=== PATIENT | female | born 1945 | race Caucasian/White ===

== ENCOUNTER 2019-06-04 09:39 | Inpatient (IN) | payer MEDICARE ==
--- NOTE | 2019-06-04 10:11 | EDM.PDOC ---
ED HPI GENERAL MEDICAL PROBLEM - General Chief Complaint: Back Pain or Injury Stated Complaint: FELL ON Thursday06/01/19 Time Seen by Provider: 06/04/19 09:50 Source of Information: Reports: Patient, EMS, Family History Limitations: Reports: No Limitations - History of Present Illness INITIAL COMMENTS - FREE TEXT/NARRATIVE: 74-year-old female fell 4 days ago landing on her backside, since that time she has had significant pain in her lower back and pelvis area especially radiating into the left hip. She went into the clinic yesterday and had some x-rays which were called negative, but this morning she had too much discomfort to get out of bed so the family called the ambulance. She has no incontinence, no significant radiation of pain down the leg and no bruising. She is on warfarin. She received IV Dilaudid for pain control in route per EMS and is feeling much better. Onset: Sudden Duration: Day(s): (4 days ago) Location: Reports: Back Quality: Reports: Sharp, Stabbing Worsens with: Reports: Movement Context: Reports: Trauma (Fell 4 days ago) Lower Back Pain Score (Numeric/FACES): 2 - Related Data Allergies Allergy/AdvReac Type Severity Reaction Status Date / Time erythromycin base Allergy Swollen Verified 06/04/19 09:44 [Erythromycin Base] Eyes Penicillins Allergy Swollen Verified 06/04/19 09:44 Eyes Home Meds: Home Meds Colesevelam [Welchol] 625 tab PO TID 06/04/19 [History] Metoprolol Tartrate 12.5 mg PO BID 06/04/19 [History] Warfarin [Coumadin] 5 mg PO DAILY 06/04/19 [History] buPROPion HCL [Bupropion HCl Sr] 150 mg PO BID 06/04/19 [History] Past Medical History HEENT History: Reports: Cataract, Other (See Below) Other HEENT History: dry eyes Cardiovascular History: Reports: High Cholesterol, Hypertension Other Genitourinary History: ? 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: Musculoskeletal History: Reports: Osteoarthritis Psychiatric History: Reports: Depression Endocrine/Metabolic History: Reports: Diabetes, Type II Other Endocrine/Metabolic History: diet control - Infectious Disease History Infectious Disease History: Reports: Chicken Pox, Measles, Mumps - Past Surgical History HEENT Surgical History: Reports: Adenoidectomy, Cataract Surgery, Tonsillectomy Social & Family History - Tobacco Use Smoking Status *Q: Never Smoker - Caffeine Use Caffeine Use: Reports: Coffee - Recreational Drug Use Recreational Drug Use: No ED ROS GENERAL - Review of Systems Review Of Systems: See Below Constitutional: Denies: Fever, Chills Respiratory: Denies: Shortness of Breath Cardiovascular: Denies: Chest Pain GI/Abdominal: Denies: Nausea, Vomiting Neurological: Reports: Other (Some radicular type pain extending from the lower back through the left buttock into the upper left thigh). Denies: Headache, Paresthesia Psychiatric: Reports: No Symptoms ED EXAM,LOWER BACK PAIN/INJURY - Physical Exam Exam: See Below Exam Limited By: No Limitations General Appearance: Alert, No Apparent Distress, Other (Patient now is fairly comfortable after the IV Dilaudid) Head: Atraumatic Neck: Supple Respiratory/Chest: No Respiratory Distress Cardiovascular: Regular Rate, Rhythm, No Murmur GI/Abdominal: Soft, Non-Tender Back Exam: Other (She has increased pain when actively rolling onto her right side, mostly located in the upper sacrum and left buttock area. I cannot reproduce the pain with palpation. There is no bruising or asymmetry seen.) Extremities: No Pedal Edema Neurological: Alert, No Motor/Sensory Deficits, Oriented x 3 Course - Vital Signs Last Recorded V/S: Last Vital Signs Temp 97.2 F 06/04/19 09:48 Pulse 74 06/04/19 13:55 Resp 18 06/04/19 13:55 BP 117/51 L 06/04/19 13:55 Pulse Ox 99 06/04/19 13:55 - Orders/Labs/Meds Orders: Medication Orders Acetaminophen (Tylenol) 650 mg PO Q4H PRN PRN Reason: Pain (Mild 1-3)/fever Bupropion HCl (Wellbutrin Sr) 150 mg PO BID [facility] Cyclobenzaprine HCl (Flexeril) 10 mg PO Q6H PRN PRN Reason: Pain Sodium Chloride (Normal Saline) 1,000 mls @ 75 mls/hr IV ASDIRECTED [facility] Metoprolol Tartrate (Lopressor) 12.5 mg PO BID [facility] Non-Formulary Medication (Colesevelam [Welchol]) 625 tab PO TID [facility] Ondansetron HCl (Zofran) 4 mg IV Q4H PRN PRN Reason: Nausea/Vomiting Polyethylene Glycol (Miralax) 17 gm PO DAILY PRN PRN Reason: Constipation Senna/Docusate Sodium (Senna Plus) 1 tab PO BID [facility] Sodium Chloride (Saline Flush) 10 ml FLUSH ASDIRECTED PRN PRN Reason: Keep Vein Open Warfarin Sodium (Coumadin) 5 mg PO DAILY [facility] Labs: Laboratory Tests 06/04/19 06/04/19 06/04/19 Range/Units 11:53 11:55 11:55 WBC 8.4 (4.5-11.0) K/uL RBC 4.33 (3.30-5.50) M/uL Hgb 13.0 (12.0-15.0) g/dL Hct 40.0 (36.0-48.0) % MCV 92 (80-98) fL MCH 30 (27-31) pg MCHC 33 (32-36) % Plt Count 194 (150-400) K/uL Neut % (Auto) 78 H (36-66) % Lymph % (Auto) 12 L (24-44) % [place] % (Auto) 9 H (2-6) % Eos % (Auto) 1 L (2-4) % Baso % (Auto) 0 (0-1) % PT 37.6 H (9.5-12.0) sec INR 3.75 H (0.80-1.20) Sodium 141 (140-148) mmol/L Potassium 4.0 (3.6-5.2) mmol/L Chloride 105 (100-108) mmol/L Carbon Dioxide 25 (21-32) mmol/L Anion Gap 11.0 (5.0-14.0) mmol/L BUN 14 (7-18) mg/dL Creatinine 0.7 (0.6-1.0) mg/dL Est Cr Clr Drug Dosing 57.91 mL/min Estimated GFR (MDRD) > 60 (>60) Glucose 149 H (74-106) mg/dL Calcium 8.3 L (8.5-10.1) mg/dL Meds: Medications Generic Name Dose Route Start Last Admin Trade Name Freq PRN Reason Stop Dose Admin Acetaminophen 650 mg 06/04/19 13:38 Tylenol PO Q4H PRN Pain (Mild 1-3)/fever Bupropion HCl 150 mg 06/04/19 21:00 Wellbutrin Sr PO BID [facility] Cyclobenzaprine HCl 10 mg 06/04/19 14:10 Flexeril PO Q6H PRN Pain Sodium Chloride 1,000 mls @ 75 mls/hr 06/04/19 13:38 Normal Saline IV ASDIRECTED [facility] Metoprolol Tartrate 12.5 mg 06/04/19 21:00 Lopressor PO BID [facility] Non-Formulary Medication 625 tab 06/04/19 14:00 Colesevelam [Welchol] PO TID [facility] Ondansetron HCl 4 mg 06/04/19 13:38 Zofran IV Q4H PRN Nausea/Vomiting Polyethylene Glycol 17 gm 06/04/19 13:38 Miralax PO DAILY PRN Constipation Senna/Docusate Sodium 1 tab 06/04/19 14:00 Senna Plus PO BID [facility] Sodium Chloride 10 ml 06/04/19 13:38 Saline Flush FLUSH ASDIRECTED PRN Keep Vein Open Warfarin Sodium 5 mg 06/05/19 09:00 Coumadin PO DAILY [facility] Discontinued Medications Generic Name Dose Route Start Last Admin Trade Name Freq PRN Reason Stop Dose Admin Enoxaparin Sodium 40 mg 06/04/19 13:38 Lovenox SUBCUT DAILY [facility] Oxycodone HCl 5 mg 06/04/19 13:38 Oxycodone PO Q4H PRN Pain (moderate 4-6) - Re-Assessments/Exams Free Text/Narrative Re-Assessment/Exam: 06/04/19 10:10 The family called and said do not send her home as there is nobody that can help her. A CT of the lumbar spine and pelvis was ordered to rule out a compression fracture or subtle sacral fracture that was missed on regular x- rays. 06/04/19 11:44 IMPRESSION: 1. There are bilateral comminuted sacral ala insufficiency fractures, with medial extension into the sacral body at the inferior S1 segment resulting in mild cortical step-off anteriorly. 2. There is a mild L4 wedge compression deformity, age indeterminate. No retropulsion or posterior element involvement. 3. Diffuse lumbar spondylosis with upper lumbar dextroconvex scoliosis and asymmetric degenerative changes along the concave aspect of the scoliotic curvature. 4. At L4-5, at least moderate spinal canal stenosis and subarticular recess stenosis from grade 1 degenerative anterolisthesis and other spondylosis. Moderate up down neural foraminal stenosis bilaterally 5. At L5-S1, moderately advanced right up down neural foraminal stenosis with impingement of the exiting right L5 nerve root. 06/04/19 11:47 Discussed the above findings with Dr. Arnold of the hospitalist service, CBC and BMP were obtained and the patient will be admitted for pain control and initiation of rehabilitation. Departure - Departure Time of Disposition: 13:44 Disposition: Admitted As Inpatient 67 Clinical Impression: Vertigo Sacral insufficiency fracture Qualifiers: Encounter type: initial encounter Qualified Code(s): M84.48XA - Pathological fracture, other site, initial encounter for fracture Low back pain Qualifiers: Chronicity: acute Back pain laterality: left Sciatica presence: without sciatica Qualified Code(s): M54.5 - Low back pain - Discharge Information Sepsis Event Note - Evaluation Sepsis Screening Result: No Definite Risk - Focused Exam Vital Signs: Vital Signs Temp Pulse Resp BP Pulse Ox 06/04/19 09:48 97.2 F 80 18 120/74 98 06/04/19 09:45 97.2 F 80 18 120/74 98 Date Exam was Performed: 06/04/19 Time Exam was Performed: 14:21
--- NOTE | 2019-06-04 11:27 | CRLCT ---
Indication: Trauma. Patient fell. Technique: A CT volumetric acquisition was performed of the pelvis without IV contrast. Comparison: None Findings: Atherosclerotic calcifications are evident within the iliac arteries. There is no evidence intraperitoneal or extraperitoneal hemorrhage within the pelvis. The visualized small intestine and colon appear normal. Uterus and ovaries appear normal. The urinary bladder is intact. Degenerative changes are present within the symphysis pubis. No fractures are identified within the inferior or superior pubic rami. The acetabulum appears intact. Femoral heads are anatomically aligned. There is no evidence of a fracture within either femoral head or neck. The greater and lesser trochanter appear intact. There is no evidence of diastasis of the sacroiliac joints. No fractures are noted within the iliac wings. Impression: No fracture identified within either hip or within the bony pelvis. Please note that all CT scans at this facility use dose modulation, iterative reconstruction, and/or weight-based dosing when appropriate to reduce radiation dose to as low as reasonably achievable. Dictated by Alexi Abebe MD @ Jun 04 2019 11:21AM Signed by Dr. Alexi Abebe @ Jun 04 2019 11:25AM
--- NOTE | 2019-06-04 11:32 | CRLCT ---
INDICATION: Fall with back pain. TECHNIQUE: CT of the lumbar spine without contrast. Coronal and sagittal reformats are included. COMPARISON: None. FINDINGS: Five lumbar type vertebral bodies, with the last fully formed disc space referred to as L5-S1. Dextroconvex scoliosis with apex at L1-2. There are bilateral comminuted fractures of the sacral ala, with central extension into the sacral body at the inferior S1 segment. This results in mild anterior cortical step-off at S1 with respect to S2. Favor insufficiency fractures as underlying etiology. L4 wedge compression deformity with 20 percent height loss anteriorly. No retropulsion. Atheromatous abdominal aorta without aneurysm. Findings at individual levels as follows: T12-L1: Moderate disc height loss and T12 inferior endplate Schmorl`s node. Trace degenerative retrolisthesis. Mild disc bulging, eccentric to the left. Left facet joint arthrosis moderate left neural foraminal narrowing. No right neural foraminal narrowing or spinal canal narrowing. L1-2: Mild disc bulging and left facet arthrosis. Mild left neural foraminal narrowing. No right neural foraminal narrowing or spinal canal narrowing. L2-3: Moderate to advanced disc height loss posteriorly, with subchondral sclerosis and degenerative end-plate remodeling. Moderate circumferential disc bulging and bilateral facet arthrosis. Mild to moderate left neural foraminal narrowing. No significant right neural foraminal narrowing or spinal canal narrowing. L3-4: Interspace ballooning anteriorly with moderate disc height loss and subchondral sclerosis posteriorly. Moderate disc bulge with overlying end-plate osteophytes, eccentric to the left. Mild left neural foraminal narrowing. Bilateral facet arthrosis. No significant right neural foraminal narrowing or spinal canal narrowing. L4-5: Mild disc height loss and 4 millimeters of grade 1 degenerative anterolisthesis. Advanced bilateral facet arthrosis. At least moderate spinal canal stenosis and subarticular recess stenosis. Moderate bilateral up down neural foraminal stenosis. L5-S1: Moderate disc height loss, more prominent on the right where there is subchondral sclerosis and degenerative end-plate remodeling. Mild degenerative anterolisthesis. Bilateral advanced facet arthrosis. Moderately advanced right up down neural foraminal stenosis, with impingement of the exiting right L5 nerve root. Imaged SI joints: Bilateral arthrosis. IMPRESSION: 1. There are bilateral comminuted sacral ala insufficiency fractures, with medial extension into the sacral body at the inferior S1 segment resulting in mild cortical step-off anteriorly. 2. There is a mild L4 wedge compression deformity, age indeterminate. No retropulsion or posterior element involvement. 3. Diffuse lumbar spondylosis with upper lumbar dextroconvex scoliosis and asymmetric degenerative changes along the concave aspect of the scoliotic curvature. 4. At L4-5, at least moderate spinal canal stenosis and subarticular recess stenosis from grade 1 degenerative anterolisthesis and other spondylosis. Moderate up down neural foraminal stenosis bilaterally 5. At L5-S1, moderately advanced right up down neural foraminal stenosis with impingement of the exiting right L5 nerve root. Please note that all CT scans at this facility use dose modulation, iterative reconstruction, and/or weight-based dosing when appropriate to reduce radiation dose to as low as reasonably achievable. Dictated by Santana Yi MD @ Jun 04 2019 11:16AM Signed by Dr. Santana Yi @ Jun 04 2019 11:30AM
--- NOTE | 2019-06-04 12:25 | PCM.HP.2 ---
H&P History of Present Illness - General Date of Service: 06/04/19 Admit Problem/Dx: Admission Diagnosis/Problem Admission Diagnosis/Problem Fracture of pelvis Source of Information: Patient, Provider, RN Notes Reviewed History Limitations: Reports: No Limitations - History of Present Illness Initial Comments - Free Text/Narative: Ms. Car is a 74-year-old woman who was admitted through the emergency department with pain and weakness secondary to a sacral insufficiency fracture. She has been having some ongoing difficulty with vertigo, unfortunately she fell 3 days ago landing on her back and buttocks. Since then has had severe low back pain that is much worse with any type of movement or attempt at ambulation. She has been bedbound over the last 24 hours and was brought into the emergency department by EMS. X-rays obtained in the clinic 2 days ago showed no obvious fracture. CT scan of pelvis showed a sacral insufficiency fracture and possible L4 compression fracture to explain her current symptoms. She denies any neurologic deficits or symptoms and has had no difficulty with urination or bowel movements. Lower Back Pain Score (Numeric/FACES): 2 - Related Data Allergies/Adverse Reactions: Allergies Allergy/AdvReac Type Severity Reaction Status Date / Time erythromycin base Allergy Swollen Verified 06/04/19 09:44 [Erythromycin Base] Eyes Penicillins Allergy Swollen Verified 06/04/19 09:44 Eyes Home Medications: Home Meds Colesevelam [Welchol] 625 tab PO TID 06/04/19 [History] Metoprolol Tartrate 12.5 mg PO BID 06/04/19 [History] Warfarin [Coumadin] 5 mg PO DAILY 06/04/19 [History] buPROPion HCL [Bupropion HCl Sr] 150 mg PO BID 06/04/19 [History] Past Medical History HEENT History: Reports: Cataract, Other (See Below) Other HEENT History: dry eyes Cardiovascular History: Reports: High Cholesterol, Hypertension Other Genitourinary History: ? 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: Musculoskeletal History: Reports: Osteoarthritis Psychiatric History: Reports: Depression Endocrine/Metabolic History: Reports: Diabetes, Type II Other Endocrine/Metabolic History: diet control - Infectious Disease History Infectious Disease History: Reports: Chicken Pox, Measles, Mumps - Past Surgical History HEENT Surgical History: Reports: Adenoidectomy, Cataract Surgery, Tonsillectomy Social & Family History - Tobacco Use Smoking Status *Q: Never Smoker - Caffeine Use Caffeine Use: Reports: Coffee - Recreational Drug Use Recreational Drug Use: No H&P Review of Systems - Review of Systems: Review Of Systems: See Below General: Reports: Weakness. Denies: Fever, Chills HEENT: Reports: No Symptoms Pulmonary: Reports: No Symptoms Cardiovascular: Reports: No Symptoms Gastrointestinal: Reports: No Symptoms Genitourinary: Reports: No Symptoms Musculoskeletal: Reports: Other (Low back pain) Skin: Reports: No Symptoms Psychiatric: Reports: No Symptoms Neurological: Reports: No Symptoms Hematologic/Lymphatic: Reports: No Symptoms Immunologic: Reports: No Symptoms Exam - Exam Exam: See Below - Vital Signs Vital Signs: Last Vital Signs Temp 97.2 F 06/04/19 09:48 Pulse 80 06/04/19 09:48 Resp 18 06/04/19 09:48 BP 120/74 06/04/19 09:48 Pulse Ox 98 06/04/19 09:48 Weight: 123 lb - Exam Quality Assessment: DVT Prophylaxis General: Alert, Oriented, Cooperative, Moderate Distress HEENT: Conjunctiva Clear, Hearing Intact, Mucosa Moist & [place], Normal Nasal Septum, Posterior Pharynx Clear, Pupils Equal Neck: Supple, Trachea Midline, +2 Carotid Pulse wo Bruit Lungs: Clear to Auscultation, Normal Respiratory Effort Cardiovascular: Regular Rate, Normal S1, Normal S2, Irregular Rhythm. No: Systolic Murmur, Diastolic Murmur GI/Abdominal Exam: Soft, Non-Tender, No Organomegaly, No Distention Skin: Warm, Dry, Intact Neurological: Cranial Nerves Intact, Strength Equal Bilateral, Normal Speech, Normal Tone, Sensation Intact. No: Focal Deficit Neuro Extensive - Mental Status: Alert, Oriented x3, Normal Mood/Affect, Normal Cognition, Memory Intact - Patient Data Lab Results Last 24 hrs: Laboratory Results - last 24 hr 06/04/19 06/04/19 Range/Units 11:55 11:55 WBC 8.4 (4.5-11.0) K/uL RBC 4.33 (3.30-5.50) M/uL Hgb 13.0 (12.0-15.0) g/dL Hct 40.0 (36.0-48.0) % MCV 92 (80-98) fL MCH 30 (27-31) pg MCHC 33 (32-36) % Plt Count 194 (150-400) K/uL Neut % (Auto) 78 H (36-66) % Lymph % (Auto) 12 L (24-44) % [place] % (Auto) 9 H (2-6) % Eos % (Auto) 1 L (2-4) % Baso % (Auto) 0 (0-1) % Sodium 141 (140-148) mmol/L Potassium 4.0 (3.6-5.2) mmol/L Chloride 105 (100-108) mmol/L Carbon Dioxide 25 (21-32) mmol/L Anion Gap 11.0 (5.0-14.0) mmol/L BUN 14 (7-18) mg/dL Creatinine 0.7 (0.6-1.0) mg/dL Est Cr Clr Drug Dosing 57.91 mL/min Estimated GFR (MDRD) > 60 (>60) Glucose 149 H (74-106) mg/dL Calcium 8.3 L (8.5-10.1) mg/dL Result Diagrams: 06/04/19 11:55 06/04/19 11:55 Sepsis Event Note - Evaluation Sepsis Screening Result: No Definite Risk - Focused Exam Vital Signs: Vital Signs Temp Pulse Resp BP Pulse Ox 06/04/19 09:48 97.2 F 80 18 120/74 98 06/04/19 09:45 97.2 F 80 18 120/74 98 Date Exam was Performed: 06/04/19 Time Exam was Performed: 12:51 *Q Meaningful Use (ADM) - VTE Risk Assess *Q Each Risk Factor Represents 1 Point: None Total Score 1 Point Risk Factors: 0 Each Risk Factor Represents 2 Points: Age 60 - 74 Years Total Score 2 Point Risk Factors: 2 Each Risk Factor Represents 3 Points: None Total Score 3 Point Risk Factors: 0 Each Risk Factor Represents 5 Points: Hip, Pelvis or Leg Fracture, Less than 1 month Total Score 5 Point Risk Factors: 5 Venous Thromboembolism Risk Factor Score *Q: 7 Problem List Initiated/Reviewed/Updated: Yes Orders Last 24hrs: Active Orders 24 hr Category Date Time Status Patient Status Manage Transfer [TRANSFER] Routine ADT 06/04/19 12:18 Active Resuscitation Status Routine Resus Stat 06/04/19 12:20 Ordered Assessment/Plan Comment:: ASSESSMENT AND PLAN SACRAL INSUFFICIENCY FRACTURE-occurring as a result of the fall 3 days ago. Over the last 24 to 36 hours has been unable to get out of bed. Pain remains severe limiting all types of movement or ambulation. -Pain and nausea medication as needed -Physical therapy consult -IV fluids for hydration -We will need to plan for intermediate placement HYPERTENSION -Continue outpatient medical therapy VERTIGO-longstanding issue MAINTENANCE ISSUES -DVT prophylaxis; Lovenox 40 mg subcu daily -GI prophylaxis; not indicated -Li catheter; not indicated -Nutrition; 2 g sodium diet -Nicotine dependence; not required CODE STATUS-FULL CODE ADMISSION STATUS-patient will be admitted to inpatient status, expect at least a 2 night hospital stay for evaluation and management of problems as outlined above. At the time of this admission I do not reasonably expected evaluation and management of this problem will require more than a 96 hour hospital stay. DISPOSITION-anticipate discharge to home after the hospital stay. PRIMARY CARE PROVIDER- - Mortality Measure Prognosis:: Good
[2019-06-04] MEDS ORDERED: Sodium Chloride 0.9% 10 ML Syringe FLUSH PRN (13:38)
[2019-06-04] MEDS ORDERED: Ondansetron 4 MG/2 ML SDV IV PRN (13:38)
[2019-06-04] MEDS ORDERED: Enoxaparin 40 MG/0.4 ML Syringe SUBCUT SCH (13:38)
[2019-06-04] MEDS ORDERED: Polyethylene Glycol 3350 Powder 17 GM Packet PO PRN (13:38)
[2019-06-04] MEDS ORDERED: oxyCODONE 5 MG Tab PO PRN (13:38)
[2019-06-04] MEDS ORDERED: COLESEVELAM PO SCH (14:00)
[2019-06-04] MEDS: Sodium Chloride 0.9% 1,000 ML IV SCH (15:04)
[2019-06-04] MEDS: Cyclobenzaprine 10 MG Tab PO PRN (15:40)
[2019-06-04] MEDS: WELCHOL 625 MG PO SCH (17:31)
[2019-06-04] MEDS: Acetaminophen 325 MG Tab PO PRN (17:53)
[2019-06-04] MEDS: buPROPion 150 MG Tab.SR PO SCH (20:57)
[2019-06-04] MEDS: [UNRECOGNIZED DRUG - OTHER] PO SCH (20:58)
[2019-06-04] MEDS ORDERED: BUPROPION HCL 150 MG PO SCH (21:00)
[2019-06-04] MEDS: Metoprolol Tartrate 25 MG Tab PO SCH (21:30)
[2019-06-05] MEDS: Sodium Chloride 0.9% 1,000 ML IV SCH (04:04)
[2019-06-05] MEDS: Cyclobenzaprine 10 MG Tab PO PRN (07:47)
[2019-06-05] MEDS: Metoprolol Tartrate 25 MG Tab PO SCH ×2 (08:35→20:00)
[2019-06-05] MEDS: buPROPion 150 MG Tab.SR PO SCH ×2 (08:36→20:00)
[2019-06-05] MEDS: WELCHOL 625 MG PO SCH ×3 (08:36→18:05)
[2019-06-05] MEDS: [UNRECOGNIZED DRUG - OTHER] PO SCH ×2 (08:36→21:41)
[2019-06-05] MEDS ORDERED: Diphtheria,Pertussis(Acell),Tetanus Vaccine 0.5 ML SDV IM ONE (10:00)
[2019-06-05] MEDS ORDERED: oxyCODONE 5 MG Tab PO PRN (11:22)
--- NOTE | 2019-06-05 11:27 | PCM.PN ---
- General Info Date of Service: 06/05/19 Subjective Update: Ms. Car to experience significant lower back and pelvic pain, related to her underlying fractures. Activity has been fairly limited and she requires assistance of 2 for transfers as well as short ambulation. Functional Status: Reports: Tolerating Diet, Urinating - Review of Systems General: Reports: Weakness. Denies: Fever, Chills Pulmonary: Reports: No Symptoms Cardiovascular: Reports: No Symptoms Gastrointestinal: Reports: No Symptoms Musculoskeletal: Reports: Back Pain (And pelvic pain) - Patient Data Vitals - Most Recent: Last Vital Signs Temp 95.2 F L 06/05/19 10:15 Pulse 78 06/05/19 10:15 Resp 16 06/05/19 10:15 BP 121/61 06/05/19 10:15 Pulse Ox 96 06/05/19 10:15 Weight - Most Recent: 120 lb 3.2 oz I&O - Last 24 Hours: Intake & Output 06/04/19 06/05/19 06/05/19 22:59 06:59 14:59 Intake Total 216 1158 360 Output Total 700 Balance -484 1158 360 Lab Results Last 24 Hours: Laboratory Results - last 24 hr 06/04/19 06/04/19 06/04/19 Range/Units 11:53 11:55 11:55 WBC 8.4 (4.5-11.0) K/uL RBC 4.33 (3.30-5.50) M/uL Hgb 13.0 (12.0-15.0) g/dL Hct 40.0 (36.0-48.0) % MCV 92 (80-98) fL MCH 30 (27-31) pg MCHC 33 (32-36) % Plt Count 194 (150-400) K/uL Neut % (Auto) 78 H (36-66) % Lymph % (Auto) 12 L (24-44) % [place] % (Auto) 9 H (2-6) % Eos % (Auto) 1 L (2-4) % Baso % (Auto) 0 (0-1) % PT 37.6 H (9.5-12.0) sec INR 3.75 H (0.80-1.20) Sodium 141 (140-148) mmol/L Potassium 4.0 (3.6-5.2) mmol/L Chloride 105 (100-108) mmol/L Carbon Dioxide 25 (21-32) mmol/L Anion Gap 11.0 (5.0-14.0) mmol/L BUN 14 (7-18) mg/dL Creatinine 0.7 (0.6-1.0) mg/dL Est Cr Clr Drug Dosing 57.91 mL/min Estimated GFR (MDRD) > 60 (>60) Glucose 149 H (74-106) mg/dL Calcium 8.3 L (8.5-10.1) mg/dL 06/05/19 Range/Units 04:20 WBC (4.5-11.0) K/uL RBC (3.30-5.50) M/uL Hgb (12.0-15.0) g/dL Hct (36.0-48.0) % MCV (80-98) fL MCH (27-31) pg MCHC (32-36) % Plt Count (150-400) K/uL Neut % (Auto) (36-66) % Lymph % (Auto) (24-44) % George % (Auto) (2-6) % Eos % (Auto) (2-4) % Baso % (Auto) (0-1) % PT 43.7 H (9.5-12.0) sec INR 4.40 H* (0.80-1.20) Sodium (140-148) mmol/L Potassium (3.6-5.2) mmol/L Chloride (100-108) mmol/L Carbon Dioxide (21-32) mmol/L Anion Gap (5.0-14.0) mmol/L BUN (7-18) mg/dL Creatinine (0.6-1.0) mg/dL Est Cr Clr Drug Dosing mL/min Estimated GFR (MDRD) (>60) Glucose (74-106) mg/dL Calcium (8.5-10.1) mg/dL Med Orders - Current: Current Medications Acetaminophen (Tylenol) 650 mg PO Q4H PRN PRN Reason: Pain (Mild 1-3)/fever Last Admin: 06/04/19 17:53 Dose: 650 mg Bupropion HCl (Wellbutrin Sr) 150 mg PO BID [facility] Last Admin: 06/05/19 08:36 Dose: 150 mg Metoprolol Tartrate (Lopressor) 12.5 mg PO BID [facility] Last Admin: 06/05/19 08:35 Dose: 12.5 mg Ondansetron HCl (Zofran) 4 mg IV Q4H PRN PRN Reason: Nausea/Vomiting Oxycodone HCl (Oxycodone) 5 mg PO Q3H PRN PRN Reason: Pain Welchol 625mg Tab ( (Ptom)) 0 each PO TIDMEALS [facility] Last Admin: 06/05/19 08:36 Dose: Not Given Preservision Mvi Tab ((Ptom)) 1 each PO BID [facility] Last Admin: 06/05/19 08:36 Dose: Not Given Polyethylene Glycol (Miralax) 17 gm PO DAILY PRN PRN Reason: Constipation Senna/Docusate Sodium (Senna Plus) 1 tab PO BID [facility] Last Admin: 06/05/19 08:36 Dose: 1 tab Sodium Chloride (Saline Flush) 10 ml FLUSH ASDIRECTED PRN PRN Reason: Keep Vein Open Discontinued Medications Cyclobenzaprine HCl (Flexeril) 10 mg PO Q6H PRN PRN Reason: Pain Last Admin: 06/05/19 07:47 Dose: 10 mg Diphtheria/Tetanus/Acell Pertussis (Adacel) 0.5 ml IM .ONCE ONE Stop: 06/05/19 10:01 Enoxaparin Sodium (Lovenox) 40 mg SUBCUT DAILY [facility] Last Admin: 06/04/19 21:14 Dose: Not Given Sodium Chloride (Normal Saline) 1,000 mls @ 75 mls/hr IV ASDIRECTED [facility] Last Admin: 06/05/19 04:04 Dose: 75 mls/hr Oxycodone HCl (Oxycodone) 5 mg PO Q4H PRN PRN Reason: Pain (moderate 4-6) Warfarin Sodium (Coumadin) 5 mg PO DAILY@1300 [facility] - Exam General: Alert, Oriented, Cooperative, Moderate Distress Lungs: Clear to Auscultation, Normal Respiratory Effort Cardiovascular: Regular Rate, Regular Rhythm GI/Abdominal Exam: Soft, Non-Tender, No Organomegaly, No Distention Extremities: Non-Tender, No Pedal Edema Sepsis Event Note - Evaluation Sepsis Screening Result: No Definite Risk - Focused Exam Vital Signs: Vital Signs Temp Pulse Pulse Resp BP BP Pulse Ox 06/05/19 10:15 95.2 F L 78 16 121/61 96 06/05/19 08:35 82 111/48 L 06/05/19 07:26 97.6 F 82 16 111/48 L 95 06/05/19 02:52 96.4 F L 83 16 104/48 L 97 Date Exam was Performed: 06/05/19 Time Exam was Performed: 11:24 - Problem List Review Problem List Initiated/Reviewed/Updated: Yes - My Orders Last 24 Hours: My Active Orders 06/04/19 12:20 Resuscitation Status Routine 06/04/19 13:38 Patient Status [ADT] Routine Ambulate [RC] QID Intake and Output [RC] QSHIFT Notify Provider Vital Signs [RC] ASDIRECTED Oxygen Therapy [RC] PRN Peripheral IV Care [RC] . DIRECTED Up to Chair [RC] QID VTE/DVT Education [RC] Per Unit Routine Vital Signs [RC] Q4H Consult to Physical Therapy [PT Evaluation and Treatment] [CONS] Routine Acetaminophen [Tylenol] 650 mg PO Q4H PRN Ondansetron [Zofran] 4 mg IV Q4H PRN Sodium Chloride 0.9% [Saline Flush] 10 ml FLUSH ASDIRECTED PRN polyethylene glycoL 3350 [MiraLAX] 17 gm PO DAILY PRN Peripheral IV Insertion Adult [OM.PC] Routine 06/04/19 14:00 Docusate Sodium/Sennosides [Senna Plus] 1 tab PO BID 06/04/19 14:58 Vaccines to be Administered [RC] PER UNIT ROUTINE 06/04/19 17:00 Patient's Own Medication [Ptom] 0 each PO TIDMEALS 06/04/19 21:00 Metoprolol Tartrate [Lopressor] 12.5 mg PO BID Patient's Own Medication [Ptom] 1 each PO BID buPROPion [Wellbutrin SR] 150 mg PO BID 06/04/19 Lunch 2 Gram Sodium Diet [DIET] 06/05/19 11:22 oxyCODONE 5 mg PO Q3H PRN 06/05/19 11:23 Convert IV to Saline Lock [OM.PC] Routine 06/06/19 05:00 INR,PT,PROTHROMBIN TIME [COAG] Timed - Plan Plan:: ASSESSMENT AND PLAN SACRAL INSUFFICIENCY FRACTURE-occurring as a result of the fall. Remains very limited with activity because of pain and is not safe for discharged home -Pain and nausea medication as needed -Physical therapy consult -Saline lock IV -care home placement HYPERTENSION -Continue outpatient medical therapy VERTIGO-longstanding issue MAINTENANCE ISSUES -DVT prophylaxis; Lovenox 40 mg subcu daily -GI prophylaxis; not indicated -Li catheter; not indicated -Nutrition; 2 g sodium diet -Nicotine dependence; not required CODE STATUS-FULL CODE ADMISSION STATUS-patient will be admitted to inpatient status, expect at least a 2 night hospital stay for evaluation and management of problems as outlined above. At the time of this admission I do not reasonably expected evaluation and management of this problem will require more than a 96 hour hospital stay. DISPOSITION-anticipate discharge to home after the hospital stay. PRIMARY CARE PROVIDER-
[2019-06-05] MEDS ORDERED: Warfarin 5 MG Tab PO SCH (13:00)
[2019-06-05] MEDS: oxyCODONE 5 MG Tab PO PRN ×2 (15:36→19:50)
[2019-06-05] MEDS: Acetaminophen 325 MG Tab PO PRN ×2 (15:36→19:49)
[2019-06-05] MEDS ORDERED: Diltiazem 25 MG/5 ML SDV IVPUSH ONE (20:50)
[2019-06-05] MEDS ORDERED: Diltiazem 100 MG in Sodium Chloride 0.9% 100 ML IV SCH (21:00)
[2019-06-05] MEDS ORDERED: Digoxin 500 MCG/2 ML Amp IVPUSH ONE (21:31)
[2019-06-05] MEDS ORDERED: Potassium Chloride Riders 40 MEQ in Premix Bag 1 BAG IV ONE (21:44)
[2019-06-05] MEDS ORDERED: Potassium Chloride 20 MEQ Tab.ER PO ONE (21:44)
--- NOTE | 2019-06-05 21:50 | PCM.SN ---
- Free Text/Narrative Note: Ms. Car unfortunately developed atrial fibrillation with rapid ventricular response this evening. Initial heart rates have been in the range of 140-160. She has a known history of paroxysmal atrial fibrillation and is on oral anticoagulation with warfarin. She is tolerated the rapid rate well denies any symptoms of lightheadedness weakness or shortness of breath. After onset of the atrial fibrillation she did receive her evening dose of metoprolol. Rates now are in the range of 110-130. Laboratory studies have been obtained CBC was unremarkable, BMP shows a low potassium level at 3.0, magnesium is within normal range. On physical examination blood pressure is borderline low at 90 systolic. Heart rates as above respiratory rate and oxygenation are good and she is currently afebrile. On cardiac exam she has rapid irregular rhythm no murmurs S3 or S4 lungs are clear. She has been transferred to the intensive care unit, given borderline blood pressure will hold off on diltiazem at the present time. She will receive digoxin 0.25 mg IV now. Hypokalemia will be managed with IV and oral potassium. Follow-up digoxin level and potassium level in a.m. with INR. TeleHealth - TeleHealth Patient Service Facility: [facility] Informed Consent: Telemedicine Audio/Visual Informed Consent: The risks, benefits, and alternatives to the telehealth visit were explained to the patient and the patient consented to this modality of care. The telehealth visit was carried out via a secure, web-based conferencing system. This telemedicine service was a real-time, two-way interactive video and communication between the patient and the provider. All the parties involved were identified and approved by the patient prior to the visit. Any physical exam was assisted by the patient. Unless noted otherwise, the provider was located at their usual clinic location , and the patient was at their place of residence. Patient identity was confirmed by having the patient state their name and date of . All communications with the patient (verbal, audiovisual, and written) were documented in the patients medical record per documentation standards.
[2019-06-05] MEDS ORDERED: Potassium Chloride 20 MEQ in Premix Bag 1 BAG IV ONE (22:15)
[2019-06-06] MEDS ORDERED: Potassium Chloride 20 MEQ in Premix Bag 1 BAG IV ONE (00:30)
[2019-06-06] MEDS: oxyCODONE 5 MG Tab PO PRN ×4 (00:44→19:13)
[2019-06-06] MEDS: Acetaminophen 325 MG Tab PO PRN (00:45)
[2019-06-06] MEDS: Metoprolol Tartrate 25 MG Tab PO SCH ×2 (08:11→20:06)
[2019-06-06] MEDS: buPROPion 150 MG Tab.SR PO SCH ×2 (08:13→20:07)
[2019-06-06] MEDS: [UNRECOGNIZED DRUG - OTHER] PO SCH ×2 (08:15→20:07)
[2019-06-06] MEDS: WELCHOL 625 MG PO SCH ×3 (08:15→17:27)
[2019-06-06] MEDS ORDERED: Trolamine Salicylate/Aloe Vera 10% Crm 85 GM Tube TOP PRN (09:36)
--- NOTE | 2019-06-06 09:40 | PCM.PN ---
- General Info Date of Service: 06/06/19 Subjective Update: There were no acute events overnight after her transfer to the intensive care unit. She did convert to a normal sinus rhythm with the diltiazem infusion and this has been stopped. She has remained in a sinus rhythm since that time. She does not report palpitations or shortness of breath. She does report ongoing moderate pain in her lower back with radiation down the left lower leg to the thigh and knee. She was able to get from the bed to the commode and back but had moderate pain. She thinks the pain is a little better today. She is very nervous about trying to bear any weight with concerns that she may fall because of the pain. Functional Status: Reports: Pain Controlled - Review of Systems General: Denies: Fever Musculoskeletal: Reports: Back Pain, Leg Pain (left buttocks and thigh ) - Patient Data Vitals - Most Recent: Last Vital Signs Temp 36.0 C L 06/06/19 08:00 Pulse 77 06/06/19 08:11 Resp 12 06/06/19 08:00 BP 110/56 L 06/06/19 08:11 Pulse Ox 94 L 06/06/19 08:00 Weight - Most Recent: 54.522 kg I&O - Last 24 Hours: Intake & Output 06/05/19 06/06/19 06/06/19 22:59 06:59 14:59 Output Total 1000 Balance -1000 Lab Results Last 24 Hours: Laboratory Results - last 24 hr 06/05/19 06/05/19 06/06/19 Range/Units 21:23 21:23 05:30 WBC 9.8 (4.5-11.0) K/uL RBC 4.23 (3.30-5.50) M/uL Hgb 12.7 (12.0-15.0) g/dL Hct 38.9 (36.0-48.0) % MCV 92 (80-98) fL MCH 30 (27-31) pg MCHC 33 (32-36) % Plt Count 227 (150-400) K/uL Neut % (Auto) 65 (36-66) % Lymph % (Auto) 22 L (24-44) % [place] % (Auto) 11 H (2-6) % Eos % (Auto) 2 (2-4) % Baso % (Auto) 0 (0-1) % PT 26.0 H (9.5-12.0) sec INR 2.54 H (0.80-1.20) Sodium 143 (140-148) mmol/L Potassium 3.0 L (3.6-5.2) mmol/L Chloride 107 (100-108) mmol/L Carbon Dioxide 24 (21-32) mmol/L Anion Gap 15.0 H (5.0-14.0) mmol/L BUN 18 (7-18) mg/dL Creatinine 0.7 (0.6-1.0) mg/dL Est Cr Clr Drug Dosing 56.61 mL/min Estimated GFR (MDRD) > 60 (>60) Glucose 119 H (74-106) mg/dL Calcium 8.2 L (8.5-10.1) mg/dL Magnesium 1.9 (1.8-2.4) mg/dL Digoxin (0.90-2.00) ng/mL 06/06/19 06/06/19 Range/Units 05:30 05:30 WBC (4.5-11.0) K/uL RBC (3.30-5.50) M/uL Hgb (12.0-15.0) g/dL Hct (36.0-48.0) % MCV (80-98) fL MCH (27-31) pg MCHC (32-36) % Plt Count (150-400) K/uL Neut % (Auto) (36-66) % Lymph % (Auto) (24-44) % [place] % (Auto) (2-6) % Eos % (Auto) (2-4) % Baso % (Auto) (0-1) % PT (9.5-12.0) sec INR (0.80-1.20) Sodium (140-148) mmol/L Potassium 4.3 (3.6-5.2) mmol/L Chloride (100-108) mmol/L Carbon Dioxide (21-32) mmol/L Anion Gap (5.0-14.0) mmol/L BUN (7-18) mg/dL Creatinine (0.6-1.0) mg/dL Est Cr Clr Drug Dosing mL/min Estimated GFR (MDRD) (>60) Glucose (74-106) mg/dL Calcium (8.5-10.1) mg/dL Magnesium (1.8-2.4) mg/dL Digoxin 0.54 L (0.90-2.00) ng/mL Med Orders - Current: Current Medications Acetaminophen (Tylenol Extra Strength) 1,000 mg PO TID [facility] Bupropion HCl (Wellbutrin Sr) 150 mg PO BID [facility] Last Admin: 06/06/19 08:13 Dose: 150 mg Gabapentin (Neurontin) 100 mg PO ONETIME ONE Stop: 06/06/19 09:37 Gabapentin (Neurontin) 300 mg PO BEDTIME [facility] Metoprolol Succinate (Toprol Xl) 25 mg PO DAILY [facility] Metoprolol Tartrate (Lopressor) 12.5 mg PO BID [facility] Stop: 06/06/19 23:00 Last Admin: 06/06/19 08:11 Dose: 12.5 mg Ondansetron HCl (Zofran) 4 mg IV Q4H PRN PRN Reason: Nausea/Vomiting Oxycodone HCl (Oxycodone) 10 mg PO Q4H PRN PRN Reason: Pain Last Admin: 06/06/19 08:10 Dose: 10 mg Welchol 625mg Tab ( (Ptom)) 0 each PO TIDMEALS [facility] Last Admin: 06/06/19 08:15 Dose: 1 each Preservision Mvi Tab ((Ptom)) 1 each PO BID [facility] Last Admin: 06/06/19 08:15 Dose: Not Given Polyethylene Glycol (Miralax) 17 gm PO DAILY PRN PRN Reason: Constipation Senna/Docusate Sodium (Senna Plus) 1 tab PO BID [facility] Last Admin: 06/06/19 08:17 Dose: 1 tab Sodium Chloride (Saline Flush) 10 ml FLUSH ASDIRECTED PRN PRN Reason: Keep Vein Open Trolamine Salicylate (Aspercreme 10%) 1 gm TOP Q2H PRN PRN Reason: low back pain Warfarin Sodium (Coumadin) 2.5 mg PO ONETIME ONE Stop: 06/06/19 13:01 Discontinued Medications Acetaminophen (Tylenol) 650 mg PO Q4H PRN PRN Reason: Pain (Mild 1-3)/fever Last Admin: 06/06/19 00:45 Dose: 650 mg Cyclobenzaprine HCl (Flexeril) 10 mg PO Q6H PRN PRN Reason: Pain Last Admin: 06/05/19 07:47 Dose: 10 mg Digoxin (Lanoxin) 250 mcg IVPUSH ONETIME ONE Stop: 06/05/19 21:32 Last Admin: 06/05/19 21:45 Dose: 250 mcg Diltiazem HCl (Diltiazem) 10 mg IVPUSH ONETIME ONE Stop: 06/05/19 20:51 Last Admin: 06/05/19 23:00 Dose: Not Given Diphtheria/Tetanus/Acell Pertussis (Adacel) 0.5 ml IM .ONCE ONE Stop: 06/05/19 10:01 Last Admin: 06/05/19 16:55 Dose: Not Given Enoxaparin Sodium (Lovenox) 40 mg SUBCUT DAILY [facility] Last Admin: 06/04/19 21:14 Dose: Not Given Sodium Chloride (Normal Saline) 1,000 mls @ 75 mls/hr IV ASDIRECTED [facility] Last Admin: 06/05/19 04:04 Dose: 75 mls/hr Diltiazem HCl 100 mg/ Sodium (Chloride) 100 mls @ 5 mls/hr IV TITRATE [facility]; Protocol Last Titration: 06/05/19 23:45 Dose: 0 mg/hr, 0 mls/hr Potassium Chloride 40 meq/ (Premix) 100 mls @ 25 mls/hr IV ONETIME ONE Stop: 06/06/19 01:43 Last Admin: 06/05/19 23:00 Dose: Not Given Potassium Chloride 20 meq/ (Premix) 100 mls @ 50 mls/hr IV ONETIME ONE Stop: 06/06/19 00:14 Last Admin: 06/05/19 22:30 Dose: 50 mls/hr Potassium Chloride 20 meq/ (Premix) 100 mls @ 50 mls/hr IV ONETIME ONE Stop: 06/06/19 02:29 Last Admin: 06/06/19 00:50 Dose: 50 mls/hr Lidocaine HCl (Xylocaine-Mpf 1%) 5 ml INJECT ONETIME ONE Stop: 06/05/19 22:09 Last Admin: 06/05/19 22:59 Dose: 5 ml Oxycodone HCl (Oxycodone) 5 mg PO Q4H PRN PRN Reason: Pain (moderate 4-6) Oxycodone HCl (Oxycodone) 5 mg PO Q3H PRN PRN Reason: Pain Last Admin: 06/05/19 12:18 Dose: 5 mg Potassium Chloride (Klor-Con M20) 40 meq PO ONETIME ONE Stop: 06/05/19 21:45 Last Admin: 06/05/19 22:01 Dose: 40 meq Warfarin Sodium (Coumadin) 5 mg PO DAILY@1300 [facility] - Exam Quality Assessment: No: Supplemental Oxygen General: Alert, Oriented, Cooperative, No Acute Distress Lungs: Normal Respiratory Effort. No: Wheezing Cardiovascular: Regular Rate, Regular Rhythm GI/Abdominal Exam: Soft, No Distention Back Exam: Paraspinal Tenderness, Other (sacral tenderness) Extremities: No Pedal Edema Skin: Warm, Dry Psy/Mental Status: Alert, Normal Affect Sepsis Event Note - Evaluation Sepsis Screening Result: No Definite Risk - Focused Exam Vital Signs: Vital Signs Temp Pulse Pulse Resp BP BP Pulse Ox 06/06/19 08:11 77 110/56 L 06/06/19 08:00 36.0 C L 77 12 110/56 L 94 L 06/06/19 06:00 73 13 99/56 L 94 L 06/06/19 05:00 71 14 106/52 L 93 L 06/06/19 04:00 70 13 93/51 L 93 L 06/06/19 03:00 70 14 94/48 L 92 L 06/06/19 02:00 84 14 92/53 L 92 L 06/06/19 01:00 82 16 104/58 L 92 L 06/06/19 00:00 85 15 107/59 L 93 L 06/05/19 23:00 140 H 18 110/76 93 L 06/05/19 22:00 37.1 C 142 H 14 119/78 93 L 06/05/19 21:45 140 H Date Exam was Performed: 06/06/19 Time Exam was Performed: 12:39 - Problem List Review Problem List Initiated/Reviewed/Updated: Yes - My Orders Last 24 Hours: My Active Orders 06/06/19 09:00 Acetaminophen [Tylenol Extra Strength] 1,000 mg PO TID 06/06/19 09:36 Cooling Warming Measures [RC] ASDIRECTED Gabapentin [Neurontin] 100 mg PO ONETIME ONE Trolamine Salicylate/Aloe Vera [Aspercreme 10%] 1 gm TOP Q2H PRN Heat Therapy [OM.PC] Routine 06/06/19 13:00 Warfarin [Coumadin] 2.5 mg PO ONETIME ONE 06/06/19 21:00 Gabapentin [Neurontin] 300 mg PO BEDTIME 06/07/19 05:00 INR,PT,PROTHROMBIN TIME [COAG] Timed POTASSIUM,K [CHEM] Timed 06/07/19 09:00 Metoprolol Succinate [Toprol XL] 25 mg PO DAILY - Plan Plan:: ASSESSMENT AND PLAN SACRAL INSUFFICIENCY FRACTURE-occurring as a result of the fall. Still having a fair amount of pain but a little better. Still requiring significant assistance. -Scheduled acetaminophen -As needed oxycodone -Heating pad -Gabapentin -Physical therapy -Saline lock IV -Anticipate alf placement PAROXYSMAL ATRIAL FIBRILLATION WITH RAPID VENTRICULAR RESPONSE-did require diltiazem overnight but is back in sinus rhythm this morning. She is chronically anticoagulated. -Continue metoprolol tartrate today -Transition to metoprolol succinate in the morning -Restart warfarin today HYPERTENSION-blood pressure on the low side of normal at this time. -Continue outpatient medical therapy VERTIGO-longstanding issue, stable. MAINTENANCE ISSUES -DVT prophylaxis; warfarin -GI prophylaxis; not indicated -Li catheter; not indicated -Nutrition; 2 g sodium diet DISPOSITION-anticipate discharge to the alf for subacute rehab after the hospital stay. Kareem Fowler MD
[2019-06-06] MEDS ORDERED: Gabapentin 100 MG Cap PO ONE (09:45)
[2019-06-06] MEDS: Acetaminophen 500 MG Tab PO SCH ×3 (10:15→20:07)
[2019-06-06] MEDS ORDERED: Warfarin 2.5 MG Tab PO ONE (13:00)
[2019-06-06] MEDS ORDERED: Gabapentin 300 MG Cap PO SCH (21:00)
[2019-06-07] MEDS: oxyCODONE 5 MG Tab PO PRN ×3 (02:57→12:19)
[2019-06-07] MEDS ORDERED: Bisacodyl 10 MG Supp RECTAL ONE (08:00)
[2019-06-07] MEDS: WELCHOL 625 MG PO SCH ×2 (08:14→12:19)
[2019-06-07] MEDS: Acetaminophen 500 MG Tab PO SCH (08:16)
[2019-06-07] MEDS: [UNRECOGNIZED DRUG - OTHER] PO SCH (08:16)
[2019-06-07] MEDS: buPROPion 150 MG Tab.SR PO SCH (08:18)
[2019-06-07] MEDS ORDERED: Metoprolol Succinate 25 MG Tab.ER PO SCH (09:00)
--- NOTE | 2019-06-07 09:53 | PCM.DCSUM1 ---
Discharge Summary - Hospital Course Brief History: 74-year-old female with history of chronic vertigo, paroxysmal atrial fibrillation who presented with left lower back and left buttocks/thigh pain after a fall. She was admitted for management of a sacral insufficiency fracture as well as a L4/L5 lumbar radiculopathy. Diagnosis: Stroke: No - Discharge Data Discharge Date: 06/07/19 Discharge Disposition: DC/Tfer to SNF 03 Condition: Good - Referral to Home Health Primary Care Physician: PCP None - Discharge Diagnosis/Problem(s) (1) Sacral insufficiency fracture SNOMED Code(s): 436802366, 383118131 ICD Code: M84.48XA - PATHOLOGICAL FRACTURE, OTHER SITE, INIT ENCNTR FOR FRACTURE Status: Acute Qualifiers: Encounter type: initial encounter Qualified Code(s): M84.48XA - Pathological fracture, other site, initial encounter for fracture (2) Lumbar back pain with radiculopathy affecting left lower extremity SNOMED Code(s): 014543369, 398855718, [id number] ICD Code: M54.16 - RADICULOPATHY, LUMBAR REGION Status: Acute (3) Atrial fibrillation with rapid ventricular response SNOMED Code(s): 613656800485287 ICD Code: I48.91 - UNSPECIFIED ATRIAL FIBRILLATION Status: Acute - Patient Summary/Data Consults: Consultations 06/06/19 13:01 PT Evaluation and Treatment [CONS] Routine Please Evaluate and Treat. PT Reason for Consult: Strengthening This query below is only for informational purposes and is not editable. Admission Diagnosis/Problem: Fracture of pelvis Hospital Course: Gurvinder presented to the emergency room with acute lower back pain and weakness 3 days after having a fall at home where she landed on her buttocks. Imaging in the emergency room did reveal that she had bilateral sacral joshua fractures as well as a mild compression fracture at L4 that was age-indeterminate. She was admitted to the hospital for pain control, physical therapy and likely retirement placement for subacute rehab. Her INR in the emergency room was mildly elevated and warfarin was placed on hold. She was started on scheduled acetaminophen and as needed oxycodone for pain management. She also had a radicular component of the pain and was started on gabapentin. The day after admission she developed palpitations and was noted to be in atrial fibrillation with a rapid ventricular response. She was given her usual dose of metoprolol but continued to have a rapid rate so she was transferred to the intensive care unit and started on a diltiazem infusion. After about 2 hours on the infusion her heart return to a sinus rhythm. The infusion was stopped and her heart has remained in sinus rhythm since that time. She has made slow but steady progress with her pain. She has been able to increase her ambulation some throughout the course of the hospital stay. She does continue to require assistance with ambulation and would benefit from subacute rehab. Pain has been fairly well controlled using scheduled acetaminophen, as needed oxycodone and the gabapentin at bedtime. If she continues to have the radicular pain down the left leg she may benefit from a short trial of steroids versus epidural steroid injections. We did discuss these during the hospital stay but she felt she was improving with the current regimen and did not want to risk the potential side effects of the steroids unless it was absolutely necessary. She is stable and safe for discharge to the retirement at this time. Also of note, I did change her from short acting metoprolol to long-acting metoprolol with hopes that it will reduce her episodes of paroxysmal atrial fibrillation. - Patient Instructions Diet: Regular Diet as Tolerated Activity: As Tolerated, Full Weight Bearing Driving: Do Not Drive (if taking pain pills ) Showering/Bathing: May Shower Notify Provider of: Fever, Increased Pain Other/Special Instructions: 1. You were in the hospital for management of fractures on both sides of your sacrum (sacral ala). We also noted that you have mild nerve root impingement at L4/L5 causing the pain that radiates down your left leg. To help control the pain I recommend scheduled acetaminophen 3 times daily, scheduled gabapentin at bedtime as well as oxycodone as needed for breakthrough pain. You may also use Aspercreme by massaging this into your left buttocks and thigh area as needed for pain. Physical therapy and regular movement should help to decrease the pain over the next 1 to 2 weeks. If your pain does not improve much over the next several days you could consider a trial of steroids such as dexamethasone taken in pill form or potentially steroid injections into the lower back area performed by the anesthesia folks here at the hospital. 2. During the course of the hospital stay you had an episode of atrial fibrillation with a rapid ventricular response. To help reduce the risk of this in the future I did change your metoprolol formulation from short acting to long-acting. Please stop taking the metoprolol tartrate and start taking metoprolol succinate 25 mg once daily in the morning. 3. Referral to physical and occupational therapy for strengthening in the setting of weakness and lower back pain after a fall with sacral fracture. 4. Recheck INR 06/09 -paroxysmal atrial fibrillation (home dose was changed during the hospital stay). 5. Code status - FULL CODE - Discharge Plan *PRESCRIPTION DRUG MONITORING PROGRAM REVIEWED*: Not Applicable *COPY OF PRESCRIPTION DRUG MONITORING REPORT IN PATIENT KIA: Not Applicable Prescriptions/Med Rec: Acetaminophen [Tylenol Extra Strength] 1,000 mg PO TID #180 tablet Docusate Sodium/Sennosides [Senna Plus] 1 tab PO BID #60 tablet Gabapentin [Neurontin] 300 mg PO BEDTIME #30 cap Metoprolol Succinate [Toprol XL] 25 mg PO DAILY #30 tab.er oxyCODONE 10 mg PO Q4H PRN #90 tab PRN Reason: Pain Trolamine Salicylate/Aloe Vera [Aspercreme 10%] 1 gm TOP Q2H PRN #60 tube PRN Reason: low back pain Warfarin [Coumadin] 3 mg PO DAILY #30 tab Home Medications: Home Meds Colesevelam [Welchol] 1,350 mg PO TID 06/04/19 [History] Vit A/Vit C/Vit E/Zinc/Copper [Preservision] 1 each PO BID 06/04/19 [History] buPROPion HCL [Bupropion HCl Sr] 150 mg PO BID 06/04/19 [History] Acetaminophen [Tylenol Extra Strength] 1,000 mg PO TID #180 tablet 06/07/19 [Rx] Docusate Sodium/Sennosides [Senna Plus] 1 tab PO BID #60 tablet 06/07/19 [Rx] Gabapentin [Neurontin] 300 mg PO BEDTIME #30 cap 06/07/19 [Rx] Metoprolol Succinate [Toprol XL] 25 mg PO DAILY #30 tab.er 06/07/19 [Rx] Trolamine Salicylate/Aloe Vera [Aspercreme 10%] 1 gm TOP Q2H PRN #60 tube [Rx] Warfarin [Coumadin] 3 mg PO DAILY #30 tab 06/07/19 [Rx] oxyCODONE 10 mg PO Q4H PRN #90 tab 06/07/19 [Rx] Oxygen Therapy Mode: Room Air Patient Handouts: Oxycodone tablets or capsules, Lumbosacral Radiculopathy Referrals: Candy Valencia PA [Advanced RN Practitioner] - - Discharge Summary/Plan Comment DC Time >30 min.: Yes (35-new [facility] discharge ) - Patient Data Vitals - Most Recent: Last Vital Signs Temp 35.7 C L 06/07/19 07:00 Pulse 84 06/07/19 08:20 Resp 18 06/07/19 07:00 BP 124/68 06/07/19 08:20 Pulse Ox 99 06/07/19 07:00 Weight - Most Recent: 54.522 kg I&O - Last 24 hours: Intake & Output 06/06/19 06/07/19 06/07/19 22:59 06:59 14:59 Intake Total 120 Output Total 600 400 Balance -480 -400 Lab Results - Last 24 hrs: Laboratory Results - last 24 hr 06/07/19 06/07/19 Range/Units 04:15 04:15 PT 24.7 H (9.5-12.0) sec INR 2.40 H (0.80-1.20) Potassium 3.8 (3.6-5.2) mmol/L Med Orders - Current: Current Medications Acetaminophen (Tylenol Extra Strength) 1,000 mg PO TID [facility] Last Admin: 06/07/19 08:16 Dose: 1,000 mg Bupropion HCl (Wellbutrin Sr) 150 mg PO BID [facility] Last Admin: 06/07/19 08:18 Dose: 150 mg Gabapentin (Neurontin) 300 mg PO BEDTIME [facility] Last Admin: 06/06/19 20:06 Dose: 300 mg Metoprolol Succinate (Toprol Xl) 25 mg PO DAILY [facility] Last Admin: 06/07/19 08:20 Dose: 25 mg Ondansetron HCl (Zofran) 4 mg IV Q4H PRN PRN Reason: Nausea/Vomiting Oxycodone HCl (Oxycodone) 10 mg PO Q4H PRN PRN Reason: Pain Last Admin: 06/07/19 08:12 Dose: 10 mg Welchol 625mg Tab ( (Ptom)) 0 each PO TIDMEALS [facility] Last Admin: 06/07/19 08:14 Dose: Not Given Preservision Mvi Tab ((Ptom)) 1 each PO BID [facility] Last Admin: 06/07/19 08:16 Dose: 1 each Polyethylene Glycol (Miralax) 17 gm PO DAILY PRN PRN Reason: Constipation Last Admin: 06/07/19 03:01 Dose: 17 gm Senna/Docusate Sodium (Senna Plus) 1 tab PO BID [facility] Last Admin: 06/07/19 08:17 Dose: 1 tab Sodium Chloride (Saline Flush) 10 ml FLUSH ASDIRECTED PRN PRN Reason: Keep Vein Open Trolamine Salicylate (Aspercreme 10%) 0 gm TOP Q2H PRN PRN Reason: low back pain Last Admin: 06/06/19 16:50 Dose: 1 applic Discontinued Medications Acetaminophen (Tylenol) 650 mg PO Q4H PRN PRN Reason: Pain (Mild 1-3)/fever Last Admin: 06/06/19 00:45 Dose: 650 mg Bisacodyl (Dulcolax) 10 mg RECTAL ONETIME ONE Stop: 06/07/19 08:01 Last Admin: 06/07/19 08:13 Dose: 10 mg Cyclobenzaprine HCl (Flexeril) 10 mg PO Q6H PRN PRN Reason: Pain Last Admin: 06/05/19 07:47 Dose: 10 mg Digoxin (Lanoxin) 250 mcg IVPUSH ONETIME ONE Stop: 06/05/19 21:32 Last Admin: 06/05/19 21:45 Dose: 250 mcg Diltiazem HCl (Diltiazem) 10 mg IVPUSH ONETIME ONE Stop: 06/05/19 20:51 Last Admin: 06/05/19 23:00 Dose: Not Given Diphtheria/Tetanus/Acell Pertussis (Adacel) 0.5 ml IM .ONCE ONE Stop: 06/05/19 10:01 Last Admin: 06/05/19 16:55 Dose: Not Given Enoxaparin Sodium (Lovenox) 40 mg SUBCUT DAILY [facility] Last Admin: 06/04/19 21:14 Dose: Not Given Gabapentin (Neurontin) 100 mg PO ONETIME ONE Stop: 06/06/19 09:46 Last Admin: 06/06/19 10:39 Dose: 100 mg Sodium Chloride (Normal Saline) 1,000 mls @ 75 mls/hr IV ASDIRECTED AGRRISON Last Admin: 06/05/19 04:04 Dose: 75 mls/hr Diltiazem HCl 100 mg/ Sodium (Chloride) 100 mls @ 5 mls/hr IV TITRATE [facility]; Protocol Last Titration: 06/05/19 23:45 Dose: 0 mg/hr, 0 mls/hr Potassium Chloride 40 meq/ (Premix) 100 mls @ 25 mls/hr IV ONETIME ONE Stop: 06/06/19 01:43 Last Admin: 06/05/19 23:00 Dose: Not Given Potassium Chloride 20 meq/ (Premix) 100 mls @ 50 mls/hr IV ONETIME ONE Stop: 06/06/19 00:14 Last Admin: 06/05/19 22:30 Dose: 50 mls/hr Potassium Chloride 20 meq/ (Premix) 100 mls @ 50 mls/hr IV ONETIME ONE Stop: 06/06/19 02:29 Last Admin: 06/06/19 00:50 Dose: 50 mls/hr Lidocaine HCl (Xylocaine-Mpf 1%) 5 ml INJECT ONETIME ONE Stop: 06/05/19 22:09 Last Admin: 06/05/19 22:59 Dose: 5 ml Metoprolol Tartrate (Lopressor) 12.5 mg PO BID [facility] Stop: 06/06/19 23:00 Last Admin: 06/06/19 20:06 Dose: 12.5 mg Oxycodone HCl (Oxycodone) 5 mg PO Q4H PRN PRN Reason: Pain (moderate 4-6) Oxycodone HCl (Oxycodone) 5 mg PO Q3H PRN PRN Reason: Pain Last Admin: 06/05/19 12:18 Dose: 5 mg Potassium Chloride (Klor-Con M20) 40 meq PO ONETIME ONE Stop: 06/05/19 21:45 Last Admin: 06/05/19 22:01 Dose: 40 meq Warfarin Sodium (Coumadin) 5 mg PO DAILY@1300 [facility] Warfarin Sodium (Coumadin) 2.5 mg PO ONETIME ONE Stop: 06/06/19 13:01 Last Admin: 06/06/19 13:30 Dose: 2.5 mg - Exam Quality Assessment: Denies: Supplemental Oxygen General: Reports: Alert, Oriented, Cooperative, No Acute Distress Lungs: Reports: Normal Respiratory Effort Cardiovascular: Reports: Regular Rate, Regular Rhythm GI/Abdominal Exam: Soft, No Distention Extremities: No Pedal Edema Psy/Mental Status: Reports: Alert, Normal Affect
== END 2019-06-07 13:05 | DRG 544 ==
LOC: JP.ED 09:39 → JP.MS 12:18 → JP.ICU 06-05 21:02 → JP.MS 06-06 14:39
PROVIDERS: ADMIT Hospitalist; ATTEND Internal Medicine
DX: M84.48XA Pathological fracture, other site, initial encounter for fracture (principal); M54.16 Radiculopathy, lumbar region; I48.0 Paroxysmal atrial fibrillation; I10 Essential (primary) hypertension; E11.9 Type 2 diabetes mellitus without complications; E78.00 Pure hypercholesterolemia, unspecified; E87.6 Hypokalemia; Z88.0 Allergy status to penicillin; Z88.1 Allergy status to other antibiotic agents; Z79.01 Long term (current) use of anticoagulants; Z79.899 Other long term (current) drug therapy; Z98.49 Cataract extraction status, unspecified eye; W19.XXXA Unspecified fall, initial encounter
CPT/HCPCS: 36415; 72131; 72192; 80048; 80162; 83735; 84132; 85025; 85610; 97110-GP; 97161-GP; 99284; 99285-25; A9270-GY; J1160; J2001; J3480; J3490; J7030; J7050